=== PATIENT | female | born 1995 | race Two or more races ===

== ENCOUNTER 2019-12-07 18:00 | Emergency (ER) | payer OTHER ==
[~2019-12-07] VITALS: Ht 160 cm; Wt 52.6 kg
[~2019-12-07 18:00] MED LIST: IBUPROFEN600 MG ORAL
[2019-12-07 18:15] VITALS: BP 119/63
--- NOTE | 2019-12-07 18:34 | Emergency Room Report ---
History of Present Illness General Chief Complaint: Pain Source: Patient Present Illness HPI 24 YO female presents to the ED c/o 01/12 in severity localized rectal pain x 3 weeks. Pt. reports initially her pain was intermittent and not daily. Pt. reports her pain has progressed this past week to be more frequent and now is constant today. pt. denies fevers or chills. She denies hx of hemorrhoids. She denies notable constipation. She denies blood or black stool. She denies having rectal penetration. She denies pain with intercourse. Pt. reports pain worse with BM's or after standing a long time. Pt. denies low back pain or abdominal pain. She reports she is 3 weeks . . She has not taken any medications for her symptoms. Allergies: Coded Allergies: No Known Allergies (Unverified , 09/03/15) COVID-19 Screening Contact w/high risk pt: No Experienced COVID-19 symptoms?: No COVID-19 Testing performed COMPUTER ASSISTANT: No Patient History Past Medical History: see triage record Past Surgical History: none Pertinent Family History: none Last Menstrual Period: "mid august" Now: Yes : 1 Reviewed Nursing Documentation: PMH: Agreed; PSxH: Agreed Nursing Documentation-PMH Past Medical History: No Stated History Review of Systems All Other Systems: negative except mentioned in HPI Physical Exam Vital Signs Date Time Temp Pulse Resp B/P (MAP) Pulse Ox O2 Delivery O2 Flow Rate FiO2 12/07/19 18:05 98.4 89 17 107/54 (71) 98 Room Air Medical Decision Making PA Attestation Dr. Zheng is my supervising Physician whom patient management has been discussed with. Diagnostic Impression: Primary Impression: Hemorrhoid Qualified Codes: K64.9 - Unspecified hemorrhoids ER Course 24 YO female presents to the ED c/o 01/12 in severity localized rectal pain x 3 weeks. Pt. reports initially her pain was intermittent and not daily. Pt. reports her pain has progressed this past week to be more frequent and now is constant today. pt. denies fevers or chills. She denies hx of hemorrhoids. She denies notable constipation. She denies blood or black stool. She denies having rectal penetration. She denies pain with intercourse. Pt. reports pain worse with BM's or after standing a long time. Pt. denies low back pain or abdominal pain. She reports she is 3 weeks . . She has not taken any medications for her symptoms. Ddx considered but are not limited to constipation , anal fissure, perianal abscess, anorectal abscess, rectal wall tear, thrombosed hemorrhoid, hemorrhoid. Vital signs: are WNL, pt. is afebrile H&PE are most consistent with hemorrhoid limited suspicion of early anorectal abscess will treat for both and give strict ED return precautions. Pt. is non- toxic in appearance. NAD. ORDERS: none required at this time ED INTERVENTIONS: - Discussed the patient's self care interventions for hemorrhoids and to keep a close watch for developing abscess. went over signs and symptoms that would indicate that and require prompt return to the ED. DISCHARGE: At this time pt. is stable for d/c to home. Will provide printed patient care instructions, and any necessary prescriptions. Care plan and follow up instructions have been discussed with the patient prior to discharge. Last Vital Signs Date Time Temp Pulse Resp B/P (MAP) Pulse Ox O2 Delivery O2 Flow Rate FiO2 12/07/19 18:15 98.2 79 18 119/63 99 Room Air Disposition: HOME, SELF-CARE Condition: Stable Scripts Docusate Sodium* (COLACE*) 100 Mg Capsule 100 MG ORAL THREE TIMES A DAY for 7 Days, #21 CAP Prov: She Cid 12/07/19 Acetaminophen* (TYLENOL EXTRA STRENGTH*) 500 Mg Tablet 500 MG ORAL Q6H, #30 TAB 0 Refills Prov: She Cid 12/07/19 Hydrocortisone Hc 2.5% Cream (ANUSOL-HC 2.5% CREAM) Y Cr 1 APPLIC RC THREE TIMES A DAY, #30 GM Prov: She Cid 12/07/19 Clindamycin Hcl (CLINDAMYCIN HCL) 300 Mg Capsule 300 MG ORAL FOUR TIMES A DAY for 7 Days, #28 CAP Prov: She Cid 12/07/19 Referrals: NON PHYSICIAN (PCP) She Cid Dec 07, 2019 18:34
[2019-12-07] MEDS ORDERED: ANUSOL-HC30 GM RC (18:40)
[2019-12-07] MEDS ORDERED: COLACE100 MG ORAL (18:40)
[2019-12-07] MEDS ORDERED: CLINDAMYCIN HC300 MG ORAL (18:40)
[2019-12-07] MEDS ORDERED: TYLENOL EXTRA500 MG ORAL (18:40)
[2019-12-07 18:54] VITALS: BP 126/68
== END 2019-12-07 18:54 | disposition home or self-care (01) ==
LOC: EMR 18:17
DX: O22.41 Hemorrhoids in pregnancy, first trimester (principal); Z3A.01 Less than 8 weeks gestation of pregnancy
CPT/HCPCS: 99282